=== PATIENT | female | born 1945 | race Caucasian/White ===

== ENCOUNTER 2025-04-19 22:00 | Inpatient (IN) | payer MEDICARE, OTHER ==
[2025-04-19] MEDS ORDERED: Furosemide 40 MG (4 mL) VIAL ONE ×2 (22:21→23:50)
[2025-04-19] MEDS ORDERED: Magnesium 2 GM/50 ML BAG (IN WATER) ONE (22:22)
[2025-04-19 22:46] LABS: #Basophils 0.03 10x3/uL (0.0-0.2); #Eosinophils 0.19 10x3/uL (0.0-0.5); #Monocytes 0.46 10x3/uL (0.0-1.1); #Neutrophils 5.57 10x3/uL (1.5-8.4); %Basophils 0.4 % (0.0-2.0); %Eosinophils 2.6 % (0.0-6.0); %Lymphocytes 12.4 % (18.0-47.0); %Monocytes 6.4 % (0.0-10.0); %Neutrophils 77.6 % (40.0-75.0); Hematocrit 41.7 % (34.9-44.5); Hemoglobin 12.6 g/dL (12.0-15.5); Mean Corpuscular Hemoglobin 29.8 pg (27.0-33.0); Mean Corpuscular Volume 98.6 fL (81.6-98.3); Platelet Count 213 10x3/uL (150-450); Red Blood Cell (RBC) Count 4.23 10x6/uL (3.90-5.03); White Blood Cell (WBC) Count 7.18 10x3/uL (3.5-10.5)
[2025-04-19 22:59] LABS: ALT (SGPT) 16 U/L (Less than 34); AST (SGOT) 21 U/L (11-34); Albumin 3.7 g/dL (3.1-4.5); Alkaline Phosphatase 101 U/L (40-110); Anion Gap 14 mmol/L (10-20); BUN (Urea Nitrogen) 17 mg/dL (9.8-20.1); Bilirubin, Total 1.2 mg/dL (0.3-1.2); Calc. Creatinine Clearance 0 mL/min (70-130); Calcium 9.0 mg/dL (7.8-10.44); Carbon Dioxide 34 mmol/L (23-31); Chloride 97 mmol/L (98-107); Globulin 3.0 g/dL (2.4-3.5); Glucose 218 mg/dL (83-110); Potassium 3.6 mmol/L (3.5-5.1); Sodium 141 mmol/L (136-145)
[2025-04-19 23:10] LABS: Troponin I 0.769 ng/mL (< 0.028)
[2025-04-19] MEDS ORDERED: LevoFLOXacin 750 mg/D5W 150 ml Premix Bag ONE (23:18)
[2025-04-19] MEDS ORDERED: Calcium Carbonate 500 MG ChewTAB PO PRN (23:39)
[2025-04-19] MEDS ORDERED: Glucagon 1 MG/ML KIT IM PRN (23:39)
[2025-04-19] MEDS ORDERED: Dextrose 50% Abboject 50 ML SYRINGE SLOW IVP PRN (23:39)
[2025-04-19] MEDS ORDERED: Ondansetron PF 4 MG/2 ML Vial IVP PRN (23:39)
[2025-04-20] MEDS: Aspirin 81 mg Enteric Coated Tablet PO SCH ×2 (01:54→09:13)
[2025-04-20] MEDS: Nitroglycerin 2% Ointment 1 INCH/1 GM Packet TOP SCH (05:00)
[2025-04-20] MEDS: Furosemide 40 MG (4 mL) VIAL SLOW IVP SCH (05:53)
[2025-04-20] MEDS: Levothyroxine 150 MCG TAB PO SCH (05:56)
[2025-04-20 06:21] LABS: #Basophils Less than 0.03 10x3/uL (0.0-0.2); #Eosinophils Less than 0.03 10x3/uL (0.0-0.5); #Monocytes 0.09 10x3/uL (0.0-1.1); #Neutrophils 6.33 10x3/uL (1.5-8.4); %Basophils 0.1 % (0.0-2.0); %Eosinophils 0.1 % (0.0-6.0); %Lymphocytes 3.7 % (18.0-47.0); %Monocytes 1.3 % (0.0-10.0); %Neutrophils 94.4 % (40.0-75.0); Hematocrit 41.4 % (34.9-44.5); Hemoglobin 12.7 g/dL (12.0-15.5); Mean Corpuscular Hemoglobin 30.1 pg (27.0-33.0); Mean Corpuscular Volume 98.1 fL (81.6-98.3); Platelet Count 182 10x3/uL (150-450); Red Blood Cell (RBC) Count 4.22 10x6/uL (3.90-5.03); White Blood Cell (WBC) Count 6.72 10x3/uL (3.5-10.5)
[2025-04-20 06:39] LABS: Anion Gap 17 mmol/L (10-20); BUN (Urea Nitrogen) 15 mg/dL (9.8-20.1); Calc. Creatinine Clearance 134 mL/min (70-130); Calcium 8.9 mg/dL (7.8-10.44); Carbon Dioxide 32 mmol/L (23-31); Cardiac Risk 2.8 (Less than 4.5); Chloride 95 mmol/L (98-107); Cholesterol 143 mg/dl (< 200 Desired); Glucose 172 mg/dL (83-110); HDL Cholesterol 52 mg/dL (>60 Neg Risk); LDL Cholesterol, Calculated 82 mg/dL; Magnesium 2.3 mg/dL (1.6-2.6); Potassium 3.4 mmol/L (3.5-5.1); Sodium 141 mmol/L (136-145); Triglycerides 46 mg/dL (Less than 150)
[2025-04-20 06:53] LABS: Critical Call Chem Troponin I CCU.KH@0652; Troponin I 0.462 ng/mL (< 0.028)
[2025-04-20 06:59] LABS: Thyroid Stimulating Hormone 4.515 uIU/mL (0.35-4.94)
[2025-04-20] MEDS: Mometasone 200 MCG/Formoterol 5 MCG 60 PUFF INHALER INH SCH (07:21)
[2025-04-20 07:59] LABS: Free T4 (Free Thyroxine) 1.18 ng/dL (0.70-1.48)
[2025-04-20] MEDS: Mupirocin 1 GM TUBE TP SCH (09:00)
[2025-04-20] MEDS ORDERED: Cefdinir 300 MG CAP PO SCH (09:00)
[2025-04-20] MEDS: Metoprolol Succinate XL 25 MG ER.TAB PO SCH (09:13)
[2025-04-20] MEDS: Pantoprazole 40 MG VIAL IVP SCH (09:14)
[2025-04-20 13:39] LABS: Troponin I 0.450 ng/mL (< 0.028)
[2025-04-20] MEDS: Bumetanide 1 MG/4 ML VIAL IVP SCH (13:56)
[2025-04-20 15:16] LABS: ALV-art Gradient 176.050 mmHg (0-20); Actual Bicarbonate (HCO3a) 31.9 mEq/L (22-28); Analyzer IN Cardio CS ER; Base Excess (BEa) 5.8 mEq/L (-2.0 to +3.0); CO2 Tension 52.6 mmHg (35.0-45.0); Calcium, Ionized (arterial) 1.17 mmol/L (1.12-1.30); Hematocrit-ABG 41 % (36.0-47.0); Hemoglobin (Hb) 13.9 g/dL (12.0-16.0); O2 Tension (PaO2), arterial 114.7 mmHg (> 60.0); Potassium - ABG Lab 3.58 mmol/L (3.70-5.30); Puncture Site Right Radial artery; pH, Arterial 7.401 (7.35-7.45)
[2025-04-20] MEDS: Rosuvastatin 20 MG TAB PO SCH (20:00)
[2025-04-21 06:28] LABS: #Basophils Less than 0.03 10x3/uL (0.0-0.2); #Eosinophils Less than 0.03 10x3/uL (0.0-0.5); #Monocytes 0.62 10x3/uL (0.0-1.1); #Neutrophils 9.33 10x3/uL (1.5-8.4); %Basophils 0.1 % (0.0-2.0); %Eosinophils 0.0 % (0.0-6.0); %Lymphocytes 5.9 % (18.0-47.0); %Monocytes 5.8 % (0.0-10.0); %Neutrophils 87.8 % (40.0-75.0); Hematocrit 39.4 % (34.9-44.5); Hemoglobin 12.5 g/dL (12.0-15.5); Mean Corpuscular Hemoglobin 30.8 pg (27.0-33.0); Mean Corpuscular Volume 97.0 fL (81.6-98.3); Platelet Count 213 10x3/uL (150-450); Red Blood Cell (RBC) Count 4.06 10x6/uL (3.90-5.03); White Blood Cell (WBC) Count 10.63 10x3/uL (3.5-10.5)
[2025-04-21 06:46] LABS: ALT (SGPT) 13 U/L (Less than 34); AST (SGOT) 19 U/L (11-34); Albumin 3.5 g/dL (3.1-4.5); Alkaline Phosphatase 81 U/L (40-110); BUN (Urea Nitrogen) 16 mg/dL (9.8-20.1); Bilirubin, Total 0.7 mg/dL (0.3-1.2); Calc. Creatinine Clearance 129 mL/min (70-130); Calcium 8.9 mg/dL (7.8-10.44); Globulin 3.2 g/dL (2.4-3.5); Glucose 126 mg/dL (83-110)
[2025-04-21 06:54] LABS: Anion Gap 24 mmol/L (10-20); Carbon Dioxide 30 mmol/L (23-31); Chloride 93 mmol/L (98-107); Potassium 3.6 mmol/L (3.5-5.1); Sodium 143 mmol/L (136-145)
[2025-04-21] MEDS: Guaifenesin DM 100-10/5 ML UDCUP PO PRN (08:37)
[2025-04-21] MEDS: Metoprolol Succinate XL 50 MG ER.TAB PO SCH (08:38)
[2025-04-22 03:56] LABS: #Basophils Less than 0.03 10x3/uL (0.0-0.2); #Eosinophils 0.15 10x3/uL (0.0-0.5); #Monocytes 0.77 10x3/uL (0.0-1.1); #Neutrophils 6.39 10x3/uL (1.5-8.4); %Basophils 0.1 % (0.0-2.0); %Eosinophils 1.8 % (0.0-6.0); %Lymphocytes 12.8 % (18.0-47.0); %Monocytes 9.1 % (0.0-10.0); %Neutrophils 75.8 % (40.0-75.0); Hematocrit 37.3 % (34.9-44.5); Hemoglobin 11.8 g/dL (12.0-15.5); Mean Corpuscular Hemoglobin 30.5 pg (27.0-33.0); Mean Corpuscular Volume 96.4 fL (81.6-98.3); Platelet Count 209 10x3/uL (150-450); Red Blood Cell (RBC) Count 3.87 10x6/uL (3.90-5.03); White Blood Cell (WBC) Count 8.43 10x3/uL (3.5-10.5)
[2025-04-22 04:19] LABS: ALT (SGPT) 13 U/L (Less than 34); AST (SGOT) 23 U/L (11-34); Albumin 3.5 g/dL (3.1-4.5); Alkaline Phosphatase 78 U/L (40-110); BUN (Urea Nitrogen) 20 mg/dL (9.8-20.1); Bilirubin, Total 1.0 mg/dL (0.3-1.2); Calc. Creatinine Clearance 107 mL/min (70-130); Calcium 8.9 mg/dL (7.8-10.44); Globulin 3.0 g/dL (2.4-3.5); Glucose 104 mg/dL (83-110)
[2025-04-22 04:31] LABS: Anion Gap 24 mmol/L (10-20); Carbon Dioxide 32 mmol/L (23-31); Chloride 89 mmol/L (98-107); Potassium 3.1 mmol/L (3.5-5.1); Sodium 142 mmol/L (136-145)
[2025-04-22] MEDS: Acetaminophen 325 MG TAB PO PRN (21:07)
[2025-04-23 03:55] LABS: #Basophils Less than 0.03 10x3/uL (0.0-0.2); #Eosinophils 0.24 10x3/uL (0.0-0.5); #Monocytes 0.60 10x3/uL (0.0-1.1); #Neutrophils 4.20 10x3/uL (1.5-8.4); %Basophils 0.2 % (0.0-2.0); %Eosinophils 3.9 % (0.0-6.0); %Lymphocytes 16.9 % (18.0-47.0); %Monocytes 9.8 % (0.0-10.0); %Neutrophils 68.9 % (40.0-75.0); Hematocrit 37.4 % (34.9-44.5); Hemoglobin 12.0 g/dL (12.0-15.5); Mean Corpuscular Hemoglobin 30.4 pg (27.0-33.0); Mean Corpuscular Volume 94.7 fL (81.6-98.3); Platelet Count 191 10x3/uL (150-450); Red Blood Cell (RBC) Count 3.95 10x6/uL (3.90-5.03); White Blood Cell (WBC) Count 6.10 10x3/uL (3.5-10.5)
[2025-04-23 04:37] LABS: ALT (SGPT) 13 U/L (Less than 34); AST (SGOT) 20 U/L (11-34); Albumin 3.3 g/dL (3.1-4.5); Alkaline Phosphatase 85 U/L (40-110); BUN (Urea Nitrogen) 19 mg/dL (9.8-20.1); Bilirubin, Total 1.2 mg/dL (0.3-1.2); Calc. Creatinine Clearance 120 mL/min (70-130); Calcium 8.8 mg/dL (7.8-10.44); Globulin 2.9 g/dL (2.4-3.5); Glucose 100 mg/dL (83-110)
[2025-04-23 04:49] LABS: Anion Gap 26 mmol/L (10-20); Carbon Dioxide 33 mmol/L (23-31); Chloride 84 mmol/L (98-107); Potassium 3.0 mmol/L (3.5-5.1); Sodium 140 mmol/L (136-145)
[2025-04-23] MEDS: Senokot S 8.6-50 MG TAB PO PRN (20:52)
[2025-04-24 03:37] LABS: Hematocrit 37.2 % (34.9-44.5); Hemoglobin 11.8 g/dL (12.0-15.5); Mean Corpuscular Hemoglobin 29.5 pg (27.0-33.0); Mean Corpuscular Volume 93.0 fL (81.6-98.3); Platelet Count 197 10x3/uL (150-450); Red Blood Cell (RBC) Count 4.00 10x6/uL (3.90-5.03); White Blood Cell (WBC) Count 8.66 10x3/uL (3.5-10.5)
[2025-04-24 04:08] LABS: BUN (Urea Nitrogen) 19 mg/dL (9.8-20.1); Calc. Creatinine Clearance 112 mL/min (70-130); Calcium 9.2 mg/dL (7.8-10.44); Glucose 124 mg/dL (83-110)
[2025-04-24 04:15] LABS: Anion Gap 20 mmol/L (10-20); Carbon Dioxide 39 mmol/L (23-31); Chloride 80 mmol/L (98-107); Potassium 3.1 mmol/L (3.5-5.1); Sodium 136 mmol/L (136-145)
[2025-04-25 03:37] LABS: #Basophils Less than 0.03 10x3/uL (0.0-0.2); #Eosinophils Less than 0.03 10x3/uL (0.0-0.5); #Monocytes 0.58 10x3/uL (0.0-1.1); #Neutrophils 7.27 10x3/uL (1.5-8.4); %Basophils 0.0 % (0.0-2.0); %Eosinophils 0.1 % (0.0-6.0); %Lymphocytes 10.8 % (18.0-47.0); %Monocytes 6.5 % (0.0-10.0); %Neutrophils 81.9 % (40.0-75.0); Hematocrit 36.1 % (34.9-44.5); Hemoglobin 11.7 g/dL (12.0-15.5); Mean Corpuscular Hemoglobin 29.8 pg (27.0-33.0); Mean Corpuscular Volume 92.1 fL (81.6-98.3); Platelet Count 217 10x3/uL (150-450); Red Blood Cell (RBC) Count 3.92 10x6/uL (3.90-5.03); White Blood Cell (WBC) Count 8.88 10x3/uL (3.5-10.5)
[2025-04-25 03:59] LABS: BUN (Urea Nitrogen) 20 mg/dL (9.8-20.1); Calc. Creatinine Clearance 112 mL/min (70-130); Calcium 9.5 mg/dL (7.8-10.44); Glucose 128 mg/dL (83-110); Magnesium 1.9 mg/dL (1.6-2.6)
[2025-04-25 04:06] LABS: Anion Gap 19 mmol/L (10-20); Carbon Dioxide 38 mmol/L (23-31); Chloride 82 mmol/L (98-107); Potassium 3.0 mmol/L (3.5-5.1); Sodium 136 mmol/L (136-145)
[2025-04-25] MEDS: Apixaban 5 MG TAB PO SCH (21:23)
[2025-04-26 04:49] LABS: BUN (Urea Nitrogen) 27 mg/dL (9.8-20.1); Calc. Creatinine Clearance 65 mL/min (70-130); Calcium 9.4 mg/dL (7.8-10.44); Glucose 124 mg/dL (83-110)
[2025-04-26 04:56] LABS: Anion Gap 20 mmol/L (10-20); Carbon Dioxide 38 mmol/L (23-31); Chloride 83 mmol/L (98-107); Potassium 2.9 mmol/L (3.5-5.1); Sodium 138 mmol/L (136-145)
[2025-04-26] MEDS: Magnesium 2 GM/50 ML(in water) 2 GM in Premix 1 BAG IVPB SCH (09:12)
[2025-04-26] MEDS: Potassium Chloride 20 MEQ in Premix 1 BAG IVPB SCH (09:13)
[2025-04-26 12:59] VITALS: BMI 33.0
[2025-04-26] MEDS: Potassium Bicarbonate/Cit Ac 20 MEQ TAB PO SCH (13:18)
[2025-04-26 18:33] LABS: Anion Gap 20 mmol/L (10-20); Carbon Dioxide 35 mmol/L (23-31); Chloride 83 mmol/L (98-107); Potassium 3.6 mmol/L (3.5-5.1); Sodium 134 mmol/L (136-145)
[2025-04-27 04:39] LABS: BUN (Urea Nitrogen) 27 mg/dL (9.8-20.1); Calc. Creatinine Clearance 80 mL/min (70-130); Calcium 9.4 mg/dL (7.8-10.44); Glucose 123 mg/dL (83-110); Magnesium 2.3 mg/dL (1.6-2.6)
[2025-04-27 04:47] LABS: Anion Gap 19 mmol/L (10-20); Carbon Dioxide 33 mmol/L (23-31); Chloride 84 mmol/L (98-107); Potassium 3.1 mmol/L (3.5-5.1); Sodium 133 mmol/L (136-145)
[2025-04-27] MEDS: Magnesium Oxide 400 MG TAB PO SCH (09:37)
[2025-04-27 15:23] LABS: Magnesium 2.2 mg/dL (1.6-2.6)
[2025-04-28 01:12] LABS: Anion Gap 14 mmol/L (10-20); BUN (Urea Nitrogen) 32 mg/dL (9.8-20.1); Calc. Creatinine Clearance 71 mL/min (70-130); Carbon Dioxide 37 mmol/L (23-31); Chloride 87 mmol/L (98-107); Potassium 3.9 mmol/L (3.5-5.1); Sodium 134 mmol/L (136-145)
[2025-04-28 01:13] LABS: Calcium 9.2 mg/dL (7.8-10.44); Glucose 154 mg/dL (83-110); Magnesium 2.2 mg/dL (1.6-2.6)
[2025-04-28 04:29] VITALS: BMI 39.2
[2025-04-28] MEDS: Spironolactone 25 MG TAB PO SCH (08:31)
[2025-04-28] MEDS: Polyvinyl Alcohol 1.4%/Povidone 0.6% Opth Drops EA EYE SCH ×2 (17:23→21:41)
[2025-04-29 06:14] LABS: BUN (Urea Nitrogen) 33 mg/dL (9.8-20.1); Calc. Creatinine Clearance 104 mL/min (70-130); Calcium 8.9 mg/dL (7.8-10.44); Glucose 112 mg/dL (83-110); Magnesium 2.1 mg/dL (1.6-2.6)
[2025-04-29 06:21] LABS: Anion Gap 17 mmol/L (10-20); Carbon Dioxide 36 mmol/L (23-31); Chloride 89 mmol/L (98-107); Potassium 3.7 mmol/L (3.5-5.1); Sodium 138 mmol/L (136-145)
[2025-04-29 08:45] LABS: Actual Bicarbonate (HCO3v) 32.7 mEq/L (22-28); Analyzer IN Cardio CS ER; Base Excess 8.6 mEq/L (-2 - +2); Calcium, Ionized (venous) 1.07 mmol/L (1.16-1.32); Chloride (VBG) 90 mmol/L (98-106); Critical Notified Whom: OCOSE; Hematocrit-VBG 38 % (36.0-47.0); Hemoglobin (Hb) 12.8 g/dL (11.7-16.1); Potassium (VBG) 3.36 mmol/L (3.70-5.30); Puncture Site Other Site; RapidComm Collect By LAB; Sodium 135 mmol/L (133-146)
[2025-04-29] MEDS: Metoprolol Succinate XL 25 MG ER.TAB PO SCH (09:53)
[2025-04-29] MEDS: Pantoprazole 40 MG DR.TAB PO SCH (09:55)
[2025-04-29 19:41] VITALS: BP 122/61; TEMP 98.2
== END 2025-04-29 21:05 | DRG 280 ==
LOC: EDBD 22:00 → CSHERS 22:00 → CSHICU 23:39 → CSHTELE 04-26 16:43 → CSHICU 04-28 04:05 → CSHTELE 04-28 15:11
PROVIDERS: ADMIT Student in an Organized Health Care Education/Training Program; ATTEND Internal Medicine
PROC: 4A033R1 Measurement of Arterial Saturation, Peripheral, Percutaneous Approach (ICD-10-PCS; 2025-04-19)
PROC: 5A09457 Assistance with Respiratory Ventilation, 24-96 Consecutive Hours, Continuous Positive Airway Pressure (ICD-10-PCS; 2025-04-20)
PROC: 5A2204Z Restoration of Cardiac Rhythm, Single (ICD-10-PCS; principal; 2025-04-25)
DX: I11.0 Hypertensive heart disease with heart failure (principal); I50.33 Acute on chronic diastolic (congestive) heart failure; I21.A1 Myocardial infarction type 2; J96.21 Acute and chronic respiratory failure with hypoxia; I48.92 Unspecified atrial flutter; J44.1 Chronic obstructive pulmonary disease with (acute) exacerbation; Z68.42 Body mass index [BMI] 45.0-49.9, adult; E66.2 Morbid (severe) obesity with alveolar hypoventilation; E87.3 Alkalosis; E03.9 Hypothyroidism, unspecified; Z90.710 Acquired absence of both cervix and uterus; Z96.653 Presence of artificial knee joint, bilateral; Z79.82 Long term (current) use of aspirin; Z90.49 Acquired absence of other specified parts of digestive tract; Z90.89 Acquired absence of other organs; Z98.51 Tubal ligation status; Z79.01 Long term (current) use of anticoagulants; Z79.899 Other long term (current) drug therapy; E87.6 Hypokalemia; I35.0 Nonrheumatic aortic (valve) stenosis; I44.0 Atrioventricular block, first degree
CPT/HCPCS: 36415; 36416; 36600; 71045; 80048; 80053; 80061; 82805; 83036; 83605; 83735; 83880; 84439; 84443; 84484; 85025; 85027; 87040; 93005; 93010; 93306; 93923; 94640; 94660; 94664; 94667; 94760; 94762; 96374; 96375; 97139; J1120; J1650; J1815; J1940; J1956; J2250; J2470; J2919; J3010; J3475; J3480; J3490; J7512; J7620; J7626

== ENCOUNTER 2025-07-21 12:51 | Inpatient (IN) | payer MEDICARE, OTHER ==
[2025-07-21] MEDS ORDERED: Iopamidol 370 76% 100 ML VIAL ONE (13:00)
[2025-07-21 13:43] LABS: Actual Bicarbonate (HCO3v) 30.8 mEq/L (22-28); Analyzer IN Cardio CS ER; Base Excess 7.1 mEq/L (-2 - +2); Calcium, Ionized (venous) 1.07 mmol/L (1.16-1.32); Chloride (VBG) 92 mmol/L (98-106); Critical Notified By: S. Buerger, RRT; Hematocrit-VBG 36 % (36.0-47.0); Hemoglobin (Hb) 12.3 g/dL (11.7-16.1); Potassium (VBG) 3.71 mmol/L (3.70-5.30); Puncture Site Other Site; RapidComm Collect By lab; Sodium 133 mmol/L (133-146)
[2025-07-21 13:47] LABS: #Basophils 0.03 10x3/uL (0.0-0.2); #Eosinophils 0.18 10x3/uL (0.0-0.5); #Monocytes 0.89 10x3/uL (0.0-1.1); #Neutrophils 8.79 10x3/uL (1.5-8.4); %Basophils 0.3 % (0.0-2.0); %Eosinophils 1.7 % (0.0-6.0); %Lymphocytes 6.7 % (18.0-47.0); %Monocytes 8.4 % (0.0-10.0); %Neutrophils 82.7 % (40.0-75.0); Hematocrit 34.3 % (34.9-44.5); Hemoglobin 11.0 g/dL (12.0-15.5); Mean Corpuscular Hemoglobin 29.0 pg (27.0-33.0); Mean Corpuscular Volume 90.5 fL (81.6-98.3); Platelet Count 202 10x3/uL (150-450); Red Blood Cell (RBC) Count 3.79 10x6/uL (3.90-5.03); White Blood Cell (WBC) Count 10.62 10x3/uL (3.5-10.5)
[2025-07-21 14:06] LABS: ALT (SGPT) 17 U/L (Less than 34); AST (SGOT) 25 U/L (11-34); Albumin 3.2 g/dL (3.1-4.5); Alkaline Phosphatase 159 U/L (40-110); Anion Gap 17 mmol/L (10-20); BUN (Urea Nitrogen) 24 mg/dL (9.8-20.1); Bilirubin, Total 2.2 mg/dL (0.3-1.2); Calc. Creatinine Clearance 0 mL/min (70-130); Calcium 9.0 mg/dL (7.8-10.44); Carbon Dioxide 28 mmol/L (23-31); Chloride 92 mmol/L (98-107); Globulin 3.6 g/dL (2.4-3.5); Glucose 130 mg/dL (83-110); Potassium 3.9 mmol/L (3.5-5.1); Sodium 133 mmol/L (136-145)
[2025-07-21 14:15] LABS: Troponin I 0.576 ng/mL (< 0.028)
[2025-07-21] MEDS ORDERED: Azithromycin 500 MG VIAL ONE (14:38)
[2025-07-21] MEDS ORDERED: Aspirin Chewable 81 MG TAB ONE ×2 (14:38→21:31)
[2025-07-21] MEDS ORDERED: cefTRIAXone (ROCEPHIN) 1 GM VIAL ONE (14:38)
[2025-07-21 15:24] LABS: Glucose, Urine (Dipstick) Normal (Negative); Leukocyte 500 (Negative); Protein, Urine (Dipstick) 100 mg/dl (Neg-Trace); Specific Gravity, Urine 1.020 (1.005-1.030)
[2025-07-21] MEDS ORDERED: Furosemide 100 MG (10 mL) VIAL ONE (15:30)
[2025-07-21 16:20] LABS: Bacteria/HPF 4+ HPF (None Seen); CAUTI Indications for Culture Fever or rigors; RBC/HPF 0-3 HPF (0-3); WBC/HPF Greater Than 50 HPF (0-3)
[2025-07-21 16:21] LABS: Urine Culture Reflex Yes Yes
[2025-07-21] MEDS ORDERED: Ondansetron PF 4 MG/2 ML Vial ONE (17:16)
[2025-07-21 18:51] LABS: Magnesium 2.3 mg/dL (1.6-2.6)
[2025-07-21 18:58] LABS: Troponin I 2.179 ng/mL (< 0.028)
[2025-07-21] MEDS ORDERED: Heparin 10,000 UNITS/ 10 ML VIAL SLOW IVP SCH (19:15)
[2025-07-21 19:34] LABS: Hematocrit 33.7 % (34.9-44.5); Hemoglobin 10.7 g/dL (12.0-15.5); Platelet Count 202 10x3/uL (150-450)
[2025-07-21] MEDS ORDERED: Nitroglycerin 0.4 MG TAB (25 Tab Bottle) SL PRN (19:53)
[2025-07-21 20:51] LABS: Troponin I 2.552 ng/mL (< 0.028)
[2025-07-21] MEDS ORDERED: Apixaban 5 MG TAB PO SCH (21:00)
[2025-07-21] MEDS ORDERED: Enoxaparin 100 MG (1 mL) SYRINGE SC SCH (21:00)
[2025-07-21] MEDS ORDERED: Furosemide 40 MG (4 mL) VIAL ONE (21:31)
[2025-07-21] MEDS ORDERED: Famotidine/PF 20 mg/2ml Vial ONE (21:32)
[2025-07-21] MEDS: Aspirin 81 mg Enteric Coated Tablet PO SCH (21:55)
[2025-07-21] MEDS: Famotidine/PF 20 mg/2ml Vial SLOW IVP SCH (21:56)
[2025-07-21] MEDS: Furosemide 40 MG (4 mL) VIAL SLOW IVP SCH (21:56)
[2025-07-21] MEDS: Rosuvastatin 20 MG TAB PO SCH (21:56)
[2025-07-22 00:21] LABS: Troponin I 3.702 ng/mL (< 0.028)
[2025-07-22 04:14] LABS: #Basophils Less than 0.03 10x3/uL (0.0-0.2); #Eosinophils Less than 0.03 10x3/uL (0.0-0.5); #Monocytes 0.27 10x3/uL (0.0-1.1); #Neutrophils 8.66 10x3/uL (1.5-8.4); %Basophils 0.1 % (0.0-2.0); %Eosinophils 0.0 % (0.0-6.0); %Lymphocytes 4.4 % (18.0-47.0); %Monocytes 2.9 % (0.0-10.0); %Neutrophils 92.0 % (40.0-75.0); Hematocrit 32.7 % (34.9-44.5); Hemoglobin 10.5 g/dL (12.0-15.5); Mean Corpuscular Hemoglobin 29.0 pg (27.0-33.0); Mean Corpuscular Volume 90.3 fL (81.6-98.3); Platelet Count 193 10x3/uL (150-450); Red Blood Cell (RBC) Count 3.62 10x6/uL (3.90-5.03); White Blood Cell (WBC) Count 9.41 10x3/uL (3.5-10.5)
[2025-07-22 04:30] LABS: ALT (SGPT) 13 U/L (Less than 34); AST (SGOT) 28 U/L (11-34); Albumin 2.9 g/dL (3.1-4.5); Alkaline Phosphatase 130 U/L (40-110); Anion Gap 16 mmol/L (10-20); BUN (Urea Nitrogen) 30 mg/dL (9.8-20.1); Bilirubin, Total 0.9 mg/dL (0.3-1.2); Calc. Creatinine Clearance 0 mL/min (70-130); Calcium 9.1 mg/dL (7.8-10.44); Carbon Dioxide 28 mmol/L (23-31); Chloride 94 mmol/L (98-107); Globulin 3.9 g/dL (2.4-3.5); Glucose 175 mg/dL (83-110); Potassium 3.5 mmol/L (3.5-5.1); Sodium 134 mmol/L (136-145)
[2025-07-22 04:35] LABS: Troponin I 3.543 ng/mL (< 0.028)
[2025-07-22] MEDS ORDERED: Furosemide 40 MG (4 mL) VIAL ONE (05:34)
[2025-07-22] MEDS: Furosemide 40 MG (4 mL) VIAL SLOW IVP SCH (05:46)
[2025-07-22] MEDS ORDERED: Furosemide 100 MG (10 mL) VIAL SLOW IVP SCH (06:00)
[2025-07-22] MEDS ORDERED: Aspirin 81 mg Enteric Coated Tablet ONE (08:35)
[2025-07-22] MEDS ORDERED: Famotidine/PF 20 mg/2ml Vial ONE (08:36)
[2025-07-22] MEDS: Spironolactone 25 MG TAB PO SCH (09:15)
[2025-07-22] MEDS: Aspirin 81 mg Enteric Coated Tablet PO SCH (09:15)
[2025-07-22] MEDS: Metoprolol Succinate XL 25 MG ER.TAB PO SCH ×2 (09:16→14:01)
[2025-07-22] MEDS: FLU (Fluad Triv) 25-26 (65UP)PF 45 MCG/0.5 ML Syringe IM ONE (13:36)
[2025-07-22] MEDS: PNEUMOC 20-VAL CONJ-DIP CRM/PF 0.5 ML SYRINGE IM ONE (13:36)
[2025-07-22] MEDS ORDERED: Metoprolol Tartrate 5 MG (5 mL) VIAL IVP PRN (13:45)
[2025-07-22] MEDS: cefTRIAXone\\ROCEPHIN 1 GM in Sodium Chloride 0.9% 100 ML IVPB SCH (14:01)
[2025-07-22] MEDS: Azithromycin 500 MG in Sodium Chloride 0.9% 250 ML 250 ML IVPB SCH (14:52)
[2025-07-22] MEDS: Acetaminophen 325 MG TAB PO PRN (15:30)
[2025-07-23 04:05] LABS: #Basophils Less than 0.03 10x3/uL (0.0-0.2); #Eosinophils Less than 0.03 10x3/uL (0.0-0.5); #Monocytes 0.82 10x3/uL (0.0-1.1); #Neutrophils 11.95 10x3/uL (1.5-8.4); %Basophils 0.1 % (0.0-2.0); %Eosinophils 0.0 % (0.0-6.0); %Lymphocytes 4.7 % (18.0-47.0); %Monocytes 6.1 % (0.0-10.0); %Neutrophils 88.7 % (40.0-75.0); Hematocrit 31.4 % (34.9-44.5); Hemoglobin 10.1 g/dL (12.0-15.5); Mean Corpuscular Hemoglobin 29.1 pg (27.0-33.0); Mean Corpuscular Volume 90.5 fL (81.6-98.3); Platelet Count 243 10x3/uL (150-450); Red Blood Cell (RBC) Count 3.47 10x6/uL (3.90-5.03); White Blood Cell (WBC) Count 13.47 10x3/uL (3.5-10.5)
[2025-07-23 04:17] LABS: Anion Gap 15 mmol/L (10-20); BUN (Urea Nitrogen) 40 mg/dL (9.8-20.1); Calc. Creatinine Clearance 43 mL/min (70-130); Calcium 9.1 mg/dL (7.8-10.44); Carbon Dioxide 30 mmol/L (23-31); Chloride 95 mmol/L (98-107); Glucose 139 mg/dL (83-110); Potassium 3.5 mmol/L (3.5-5.1); Sodium 136 mmol/L (136-145)
[2025-07-23] MEDS: Metoprolol Succinate XL 25 MG ER.TAB PO SCH (08:14)
[2025-07-23] MEDS: Famotidine/PF 20 mg/2ml Vial SLOW IVP SCH (08:15)
[2025-07-23] MEDS: cefTRIAXone\\ROCEPHIN 2 GM in Sodium Chloride 0.9% 100 ML IVPB SCH (10:02)
[2025-07-23] MEDS: guaiFENesin/DM ER PO SCH (21:16)
[2025-07-24 03:32] LABS: #Basophils Less than 0.03 10x3/uL (0.0-0.2); #Eosinophils 0.09 10x3/uL (0.0-0.5); #Monocytes 0.79 10x3/uL (0.0-1.1); #Neutrophils 6.31 10x3/uL (1.5-8.4); %Basophils 0.0 % (0.0-2.0); %Eosinophils 1.2 % (0.0-6.0); %Lymphocytes 7.7 % (18.0-47.0); %Monocytes 10.1 % (0.0-10.0); %Neutrophils 80.7 % (40.0-75.0); Hematocrit 31.7 % (34.9-44.5); Hemoglobin 10.1 g/dL (12.0-15.5); Mean Corpuscular Hemoglobin 29.1 pg (27.0-33.0); Mean Corpuscular Volume 91.4 fL (81.6-98.3); Platelet Count 222 10x3/uL (150-450); Red Blood Cell (RBC) Count 3.47 10x6/uL (3.90-5.03); White Blood Cell (WBC) Count 7.81 10x3/uL (3.5-10.5)
[2025-07-24 03:45] LABS: Anion Gap 13 mmol/L (10-20); BUN (Urea Nitrogen) 33 mg/dL (9.8-20.1); Calc. Creatinine Clearance 87 mL/min (70-130); Calcium 9.2 mg/dL (7.8-10.44); Carbon Dioxide 32 mmol/L (23-31); Chloride 96 mmol/L (98-107); Glucose 114 mg/dL (83-110); Potassium 3.3 mmol/L (3.5-5.1); Sodium 138 mmol/L (136-145)
[2025-07-24 05:29] VITALS: BMI 42.7
[2025-07-24] MEDS: Furosemide 40 MG (4 mL) VIAL SLOW IVP SCH (05:52)
[2025-07-24] MEDS: Famotidine/PF 20 mg/2ml Vial SLOW IVP SCH (07:41)
[2025-07-24] MEDS: dilTIAZem 25 MG/5 ML VIAL SLOW IVP SCH (09:19)
[2025-07-24] MEDS: Potassium Bicarbonate/Cit Ac 20 MEQ TAB PO SCH (15:25)
[2025-07-24] MEDS: Magnesium 2 GM/50 ML(in water) 2 GM in Premix 1 BAG IVPB SCH (15:25)
[2025-07-24] MEDS: Glycerin Adult Supp. (24 ct jar) PR SCH (15:26)
[2025-07-24] MEDS: SODIUM CHLORIDE 0.9% IVPB SCH (18:08)
[2025-07-24] MEDS: MAGNESIUM SULFATE IVPB SCH (18:08)
[2025-07-24] MEDS: Melatonin 3 MG TAB PO SCH (22:11)
[2025-07-24] MEDS: Simethicone Chewable 80 MG TAB PO SCH (22:11)
[2025-07-25 05:17] LABS: #Basophils Less than 0.03 10x3/uL (0.0-0.2); #Eosinophils 0.19 10x3/uL (0.0-0.5); #Monocytes 0.66 10x3/uL (0.0-1.1); #Neutrophils 4.09 10x3/uL (1.5-8.4); %Basophils 0.2 % (0.0-2.0); %Eosinophils 3.3 % (0.0-6.0); %Lymphocytes 12.5 % (18.0-47.0); %Monocytes 11.6 % (0.0-10.0); %Neutrophils 71.7 % (40.0-75.0); Hematocrit 30.8 % (34.9-44.5); Hemoglobin 9.7 g/dL (12.0-15.5); Mean Corpuscular Hemoglobin 29.0 pg (27.0-33.0); Mean Corpuscular Volume 92.2 fL (81.6-98.3); Platelet Count 229 10x3/uL (150-450); Red Blood Cell (RBC) Count 3.34 10x6/uL (3.90-5.03); White Blood Cell (WBC) Count 5.70 10x3/uL (3.5-10.5)
[2025-07-25 05:33] LABS: Anion Gap 12 mmol/L (10-20); BUN (Urea Nitrogen) 23 mg/dL (9.8-20.1); Calc. Creatinine Clearance 104 mL/min (70-130); Calcium 8.9 mg/dL (7.8-10.44); Carbon Dioxide 34 mmol/L (23-31); Chloride 95 mmol/L (98-107); Glucose 107 mg/dL (83-110); Potassium 4.1 mmol/L (3.5-5.1); Sodium 137 mmol/L (136-145)
[2025-07-25 09:19] LABS: ALV-art Gradient 53.385 mmHg (0-20); Actual Bicarbonate (HCO3a) 26.5 mEq/L (22-28); Analyzer IN Cardio CS ER; Base Excess (BEa) 4.0 mEq/L (-2.0 to +3.0); CO2 Tension 32.7 mmHg (35.0-45.0); Calcium, Ionized (arterial) 1.01 mmol/L (1.12-1.30); Critical Notified By: S. Buerger, RRT; Hematocrit-ABG 35 % (36.0-47.0); Hemoglobin (Hb) 12.0 g/dL (12.0-16.0); O2 Tension (PaO2), arterial 133.9 mmHg (> 60.0); Potassium - ABG Lab 3.66 mmol/L (3.70-5.30); Puncture Site Left Radial artery; RapidComm Collect By S. Buerger, RRT; pH, Arterial 7.526 (7.35-7.45)
[2025-07-25] MEDS ORDERED: Communication Order-Pharmacy FS SCH (14:00)
[2025-07-25] MEDS: Glycerin Adult Supp. (24 ct jar) RC PRN (19:26)
[2025-07-26 06:53] LABS: #Basophils 0.03 10x3/uL (0.0-0.2); #Eosinophils 0.38 10x3/uL (0.0-0.5); #Monocytes 0.89 10x3/uL (0.0-1.1); #Neutrophils 5.67 10x3/uL (1.5-8.4); %Basophils 0.4 % (0.0-2.0); %Eosinophils 4.7 % (0.0-6.0); %Lymphocytes 12.0 % (18.0-47.0); %Monocytes 11.1 % (0.0-10.0); %Neutrophils 70.7 % (40.0-75.0); Hematocrit 32.5 % (34.9-44.5); Hemoglobin 9.9 g/dL (12.0-15.5); Mean Corpuscular Hemoglobin 28.6 pg (27.0-33.0); Mean Corpuscular Volume 93.9 fL (81.6-98.3); Platelet Count 275 10x3/uL (150-450); Red Blood Cell (RBC) Count 3.46 10x6/uL (3.90-5.03); White Blood Cell (WBC) Count 8.02 10x3/uL (3.5-10.5)
[2025-07-26 07:11] LABS: Anion Gap 14 mmol/L (10-20); BUN (Urea Nitrogen) 19 mg/dL (9.8-20.1); Calc. Creatinine Clearance 92 mL/min (70-130); Calcium 9.0 mg/dL (7.8-10.44); Carbon Dioxide 32 mmol/L (23-31); Chloride 96 mmol/L (98-107); Glucose 104 mg/dL (83-110); Potassium 4.3 mmol/L (3.5-5.1); Sodium 138 mmol/L (136-145)
[2025-07-26] MEDS ORDERED: Nitroglycerin 50 MG/250 ML BOT 250 ML ONE (07:31)
[2025-07-26] MEDS ORDERED: Heparin 10,000 UNITS/ 10 ML VIAL ONE (07:31)
[2025-07-26] MEDS ORDERED: Lidocaine 1% (PF) 30 ML VIAL ONE (07:31)
[2025-07-26] MEDS ORDERED: Iopamidol 300 61% 100 ML VIAL FS ONE (08:30)
[2025-07-26] MEDS ORDERED: TICAGRELOR 90 MG TABLET ONE (09:23)
[2025-07-26] MEDS ORDERED: diphenhydrAMINE 50 MG/ML VIAL ONE (09:30)
[2025-07-26] MEDS: Ondansetron PF 4 MG/2 ML Vial IVP PRN (12:23)
[2025-07-27 05:25] LABS: #Basophils Less than 0.03 10x3/uL (0.0-0.2); #Eosinophils 0.44 10x3/uL (0.0-0.5); #Monocytes 0.91 10x3/uL (0.0-1.1); #Neutrophils 6.28 10x3/uL (1.5-8.4); %Basophils 0.2 % (0.0-2.0); %Eosinophils 5.1 % (0.0-6.0); %Lymphocytes 10.2 % (18.0-47.0); %Monocytes 10.5 % (0.0-10.0); %Neutrophils 72.6 % (40.0-75.0); Hematocrit 30.4 % (34.9-44.5); Hemoglobin 9.4 g/dL (12.0-15.5); Mean Corpuscular Hemoglobin 28.8 pg (27.0-33.0); Mean Corpuscular Volume 93.3 fL (81.6-98.3); Platelet Count 279 10x3/uL (150-450); Red Blood Cell (RBC) Count 3.26 10x6/uL (3.90-5.03); White Blood Cell (WBC) Count 8.65 10x3/uL (3.5-10.5)
[2025-07-27 05:42] LABS: ALT (SGPT) 21 U/L (Less than 34); AST (SGOT) 28 U/L (11-34); Albumin 2.7 g/dL (3.1-4.5); Alkaline Phosphatase 144 U/L (40-110); Anion Gap 12 mmol/L (10-20); BUN (Urea Nitrogen) 14 mg/dL (9.8-20.1); Bilirubin, Total 0.5 mg/dL (0.3-1.2); Calc. Creatinine Clearance 104 mL/min (70-130); Calcium 8.8 mg/dL (7.8-10.44); Carbon Dioxide 32 mmol/L (23-31); Chloride 98 mmol/L (98-107); Globulin 3.4 g/dL (2.4-3.5); Glucose 106 mg/dL (83-110); Potassium 3.9 mmol/L (3.5-5.1); Sodium 138 mmol/L (136-145)
[2025-07-27] MEDS: Apixaban 5 MG TAB PO SCH (08:50)
[2025-07-27] MEDS: Furosemide 40 MG TAB PO SCH (08:50)
[2025-07-27] MEDS ORDERED: Artificial Tear Ophth Sol 15 ML BOT EA EYE PRN (09:48)
[2025-07-27 13:18] VITALS: BP 108/69; TEMP 98
== END 2025-07-27 16:40 | DRG 853 ==
LOC: CSHERS 12:51 → CSHERHOLD 17:06 → CSHICU 07-22 12:07 → CSHTELE 07-24 09:29
PROVIDERS: ADMIT Hospitalist; ATTEND Family Medicine
PROC: 5A09557 Assistance with Respiratory Ventilation, Greater than 96 Consecutive Hours, Continuous Positive Airway Pressure (ICD-10-PCS; 2025-07-21)
PROC: B2151ZZ Fluoroscopy of Left Heart using Low Osmolar Contrast (ICD-10-PCS; principal; 2025-07-26)
PROC: 3E03329 Introduction of Other Anti-infective into Peripheral Vein, Percutaneous Approach (ICD-10-PCS; principal; 2025-07-26)
PROC: 4A023N7 Measurement of Cardiac Sampling and Pressure, Left Heart, Percutaneous Approach (ICD-10-PCS; principal; 2025-07-26)
PROC: 027135Z Dilation of Coronary Artery, Two Arteries with Two Drug-eluting Intraluminal Devices, Percutaneous Approach (ICD-10-PCS; principal; 2025-07-26)
PROC: B2111ZZ Fluoroscopy of Multiple Coronary Arteries using Low Osmolar Contrast (ICD-10-PCS; principal; 2025-07-26)
PROC: 4A033R1 Measurement of Arterial Saturation, Peripheral, Percutaneous Approach (ICD-10-PCS; 2025-07-27)
DX: A41.51 Sepsis due to Escherichia coli [E. coli] (principal); I21.4 Non-ST elevation (NSTEMI) myocardial infarction; I50.33 Acute on chronic diastolic (congestive) heart failure; J96.21 Acute and chronic respiratory failure with hypoxia; N39.0 Urinary tract infection, site not specified; I48.92 Unspecified atrial flutter; J44.1 Chronic obstructive pulmonary disease with (acute) exacerbation; R65.20 Severe sepsis without septic shock; I11.0 Hypertensive heart disease with heart failure; E03.9 Hypothyroidism, unspecified; J44.89 Other specified chronic obstructive pulmonary disease; R79.89 Other specified abnormal findings of blood chemistry; E66.01 Morbid (severe) obesity due to excess calories; G47.33 Obstructive sleep apnea (adult) (pediatric); I48.91 Unspecified atrial fibrillation; I35.0 Nonrheumatic aortic (valve) stenosis; Z86.711 Personal history of pulmonary embolism; Z99.81 Dependence on supplemental oxygen; Z88.2 Allergy status to sulfonamides; Z88.1 Allergy status to other antibiotic agents; Z88.8 Allergy status to other drugs, medicaments and biological substances; Z79.01 Long term (current) use of anticoagulants
CPT/HCPCS: 36415; 36600; 71045; 71275; 80048; 80053; 81001; 82805; 83605; 83735; 83880; 84484; 85025; 85730; 87040; 87077; 87086; 87149; 87186; 87428; 92928; 92978; 92979; 93005; 93010; 93458; 94640; 94660; 94760; 94762; 99152; 99153; C1725; C1753; C1769; C1874; C1887; C1894; C9600; J0456; J0583; J0696; J1200; J1308; J1644; J1650; J1940; J2003; J2250; J2405; J3475; J7030; J7050; J7626; Q9967